=== PATIENT | female | born 1995 | race Caucasian/White ===

== ENCOUNTER 2018-05-10 20:17 | Emergency (ER) | payer OTHER ==
[~2018-05-10] VITALS: Ht 160 cm; Wt 113.4 kg
[2018-05-10] MEDS ORDERED: ACETAZOLAMIDE500 MG PO (20:35)
[2018-05-10] MEDS ORDERED: KEPPRA500 MG PO (20:36)
== END 2018-05-11 01:03 ==
LOC: ER 20:17
DX: O20.0 Threatened abortion (principal); O26.891 Other specified pregnancy related conditions, first trimester; R10.31 Right lower quadrant pain; Z34.01 Encounter for supervision of normal first pregnancy, first trimester